=== PATIENT | female | born 1960 | race Caucasian/White ===

== ENCOUNTER → 2017-06-26 | Day surgery (SDC) | payer OTHER ==
[~2017-06-26] MED LIST: FLAGYL500 MG PO; IBUPROFEN600 M1 PO; IBUPROFEN600 MG PO; NEOMYCIN SULFA500 MG PO; PERCOCET 5-3251 EACH PO
--- NOTE | 2017-06-26 15:11 | RADIOLOGY REPORT ---
EXAMINATION: XR PORTABLE CHEST CLINICAL INFORMATION: Post port placement. COMPARISON: Chest CT 05/08/2017. TECHNIQUE: Portable frontal view of the chest was obtained. FINDINGS: There has been interval placement of a left sided chest wall port with tip overlying the brachiocephalic vein. There is no pneumothorax. The lungs are clear. The cardiomediastinal silhouette appears normal. The osseous structures are intact. IMPRESSION: Interval placement of left-sided chest wall port. No evidence of pneumothorax.
--- NOTE | 2017-06-26 16:15 | Operative Report ---
Operative/Inv Procedure Report Surgery Date: 06/26/17 Name of Procedure: Port-A-Cath placement Pre-Operative Diagnosis: colon cancer Post-Operative Diagnosis: same Estimated Blood Loss: less than 50ml Surgeon/Header Set Up Operator: Keoyna Le MD Anesthesia: local monitored anesthesi Implants: Port-A-Cath (insert in the chart) Complications: none Condition: stable Operative Indication: Patient is a 57-year-old woman with metastatic colon cancer. Patient presents today for placement of a Port-A-Cath for subsequent chemotherapy area at all risks benefits and alternatives of the procedure were explained to patient detail, and she expressed understanding and agreement the same. Operative/Procedure Note Note: Patient was taken to the operating room and placed in supine position on the operating table. Both arms were tucked. Bilateral lower extremity SCDs were placed. Anesthesia was established by the anesthesia team. Bilateral neck, anterior chest wall, and shoulders were prepped and draped in the standard surgical fashion. Perioperative antibiotic was given. The timeout was carried out. The patient was placed in the Trendelenburg position. Topical analgesia was achieved with 10 mL of 1% lidocaine with epinephrine. The subclavian vein was punctured through subcutaneous stick. The guidewire was placed into the left subclavian vein and threaded to the superior vena cava easily. Its position was confirmed with fluoroscopy. Then a small pocket was created in the anterior left chest wall for the placement of the reservoir. Goulds was secured in place with 2-0 PDS sutures. The sheath and dilator were placed under direct visualization with fluoroscopy scope the over the guidewire into the left subclavian vein. The guidewire and dilator were pulled out as a unit. The catheter was placed within their subclavian vein and advanced into the superior vena cava through the sheath. The sheath was pulled apart and removed. The keep of the catheter was positioned in the superior vena cava above the right atrium and its position was confirmed with fluoroscopy. The appropriate length of the catheter was cut and it was connected to the reservoir. The reservoir was flushed first with heparinized saline, then with heparin. The subcutaneous tissues were closed with interrupted 3-0 Vicryl sutures. The skin was closed with 4-0 Monocryl sutures. Steri-Strips and sterile dressing were applied. The sponge and instrument counts were correct in the end of procedure. Patient tolerated the procedure well, was wakened up and taken to recovery room in stable condition. Discharge Disposition: home Additional Comments: CXR to be done in PACU prior to discharge
--- NOTE | 2017-06-27 09:07 | RADIOLOGY REPORT ---
EXAMINATION: PROCEDURAL FLUOROSCOPY DURING PORT PLACEMENT CLINICAL INDICATION: Port placement. COMPARISON: None. TECHNIQUE: The procedure was performed by Dr. Le. FLUOROSCOPY TIME: 1.6 minutes. DOSE AREA PRODUCT: 0.138 mGy-m2 (milligray-meter squared) FINDINGS: 4 images show wire access in the left subclavian vein and then catheter placement. The final image shows the catheter about 2-3 cm above the cavoatrial junction. The port has not yet been attached to the catheter. IMPRESSION: Procedural fluoroscopy was utilized by Dr. Le during port placement. Please refer to the procedure report for a detailed description of the procedure and the real-time findings made and acted upon by the proceduralist.
== END ==
LOC: STS 06-22 07:00
DX: C18.7 Malignant neoplasm of sigmoid colon (principal)
CPT/HCPCS: 71045; C1788; J1644; J2250

== ENCOUNTER → 2017-09-26 | Day surgery (SDC) | payer OTHER ==
[~2017-09-26] VITALS: Ht 154.9 cm; Wt 45.4 kg
[2017-09-26 11:10] LABS: ABSOLUTE BASOPHIL COUNT 0.1 /CUMM (0.0-0.2); ABSOLUTE EOSINOPHIL COUNT 0.1 /CUMM (0.0-0.7); ABSOLUTE LYMPH COUNT 2.1 /CUMM (1.2-3.4); BASOPHIL % 0.7 % (0.0-2.0); EOSINOPHIL % 1.3 % (0-5); GRANULOCYTE % 60.7 % (42.2-75.2); HEMATOCRIT 36.4 % (37-47); MEAN CORPUSCULAR HGB 29.3 PG (27.0-31.0); MEAN CORPUSCULAR HGB CONC 33.5 G/DL (33.0-37.0); MEAN CORPUSCULAR VOLUME 87.3 FL (81.0-99.0); MEAN PLATELET VOLUME 8.8 FL (7.4-10.4); PLATELET COUNT 250 /CUMM (130-400); RBC DISTRIBUTION WIDTH 17.8 % (11.5-14.5); RED BLOOD CELL CT 4.17 /CUMM (4.20-5.40); WHITE BLOOD CELL COUNT 8.3 /CUMM (4.8-10.8)
--- NOTE | 2017-09-26 15:55 | RADIOLOGY REPORT ---
EXAMINATION: XR PORTABLE CHEST CLINICAL INFORMATION: 57-year-old female patient with metastatic colorectal cancer. Poor change. COMPARISON: Preoperative chest x-ray done 09/20/2017. TECHNIQUE: Portable AP semierect view of the chest was obtained. FINDINGS: The left-sided central venous port has been removed and a new right subclavian central venous port is in place, and the tip is directed to the distal SVC. No pneumothorax is seen. The lungs are clear. There is no adenopathy. The regional skeletal structures are unremarkable. IMPRESSION: Status post central venous port change. No pneumothorax.
--- NOTE | 2017-09-27 17:31 | RADIOLOGY REPORT ---
EXAMINATION: CR CHEST/INTRAOPERATIVE FLUOROSCOPY CLINICAL INDICATION: Removal old Port-A-Cath from the left side. New right-sided access Port-A-Cath insertion in OR. COMPARISON: Chest x-ray dated 09/20/2017. TECHNIQUE/FINDINGS: Fluoroscopic equipment was dedicated to the operating room for the performance of an intraoperative procedure. Several 2 spot films were acquired and are archived in PACS. Please refer to operative notes for procedural detail. FLUOROSCOPY TIME: 0.1 minutes. IMPRESSION: Administrative dictation for intraoperative fluoroscopy and image archiving in PACS. Please refer to operative notes for details.
--- NOTE | 2017-09-27 19:26 | Operative Report ---
Operative/Inv Procedure Report Surgery Date: 09/26/17 Name of Procedure: Fluoroscopic-guided insertion of tunneled Port-A-Cath via right subclavian vein, removal of malfunctioning left subclavian Port-A-Cath Pre-Operative Diagnosis: Malfunctioning Port-A-Cath left side, metastatic colon cancer Post-Operative Diagnosis: Same Estimated Blood Loss: scant Surgeon/Appeals Assistant: Karuna RASHID,Ruben Mckeon Anesthesia: moderate sedation Operative/Procedure Note Note: With the patient supine on the OR table, right arm tucked, head not turned, after induction of MAC sedation, the patient's right subclavian area, including the shoulder neck and contralateral chest, were prepped and draped in the usual sterile fashion. After injecting local anesthetic in the right infraclavicular area, skin, subcutaneous to the clavicle, and inferiorly where the pocket will be, the patient was repositioned to Trendelenburg. Putting your right index finger on the sternal notch and thumb pressing down lateral to the curve of the clavicle, I made a puncture through the skin with the 15 blade scalpel next to thumb. Then along that line towards the tip of your finger, advance a large- bore needle, bevel towards the feet, on a slip tip 10 mL syringe barrel flat against the deltoid, advancing to bone and then "walking" it down just under the clavicle keeping the needle flat as possible, while maintaining vacuum with the plunger, accessing the subclavian venous blood, then replacing the syringe with a wire, sliding in with minimum resistance, confirming the position with the C- arm fluoroscope, making sure the wire is traveling down along the cava towards the right side of the heart and not up or across, and no ectopy. Next I secured the wire to the drape, measured (approximately 23 cm), cut and attached the catheter to the port. Approximately 3-4 cm inferior to the stick site a 2-1/2 cm long skin incision was made with a 15 blade scalpel along Langers lines. It was deepened with cautery and a space was developed inferiorly under the subcutaneous layer. The Port-A-Cath was laid in there and secured in [address] with 2-0 Prolene through the holes in the port, the sutures were kept loose on snaps at this point. Next the catheter was tunneled up subcutaneously with a snap and brought out through the stick site next to the wire. Then the dilator only, was passed over the wire until you could feel it slide under the clavicle, then removed, then re-advanced this time with the peel-away sheath over it, while advancing simultaneously pull the dilator out and advance the sheath, eventually pulling out the dilator and wire completely. Then the catheter was put into the sheath as far as it'll go then while holding that knuckle down with DeBakey's, gently peel-away the sheath with your cafeteria assistant. Now the correct position of the catheter was confirmed with the fluoroscope, using a Huang needle and heparinized saline solution, the catheter was first aspirated then flushed with approximately 3 mL's, with minimal resistance. The patient was repositioned to neutral, after tying down the 2 Prolenes, the larger incision was closed in layers, 3-0 Vicryl deep and 4-0 subcuticular Monocryl for the skin, and one subcuticular Monocryl for the stick site. Both areas were covered with Mastisol Steri-Strips Telfa and Tegaderm. Next we switcthed sides of the table and approached the left sided Port-A-Cath first injected local anesthetic at the healed incision then reopened it with a 15 blade deepened it a little to we could see the catheter which was grasped was pretty loose was retracted out of the wound and then used as a handle to excise the hub of the Port-A-Cath from the surrounding tissue scar and it was within its own capsule, after this we checked for hemostasis and reapproximated incision in layers using interrupted 3-0 Vicryl sutures deep and a running subcuticular 4-0 Biosyn suture for the skin itself followed by Mastisol Steri- Strips Telfa and Tegaderm Chest x-ray was ordered to be done in the recovery room. Lap and sponge counts were correct. Wound expectancy was clean, IV fluids crystalloid, complications none, patient tolerated the procedure well was awakened and returned to the recovery room in satisfactory condition.
== END ==
LOC: STS 03:12
PROVIDERS: Surgery
DX: T82.594A Other mechanical complication of infusion catheter, initial encounter (principal); C18.9 Malignant neoplasm of colon, unspecified; C78.7 Secondary malignant neoplasm of liver and intrahepatic bile duct
CPT/HCPCS: 36415; 71045; 93005; 93010; C1751; J0690; J1644; J2250